=== PATIENT | female | born 1935 | race Caucasian/White ===

== ENCOUNTER → 2022-02-04 | Outpatient (CLI) | payer SELFPAY ==
[2022-02-04 16:38] LABS: Mucous, Urine 0 SEEN /hpf (<or=2+)
[2022-02-04 16:41] LABS: Color, Urine Yellow (Yellow); Glucose, Dipstick Normal (Normal); Ketone-Dipstick Negative (Negative); Leukocyte Esterase-Dipstick 500 /ul (Negative); Nitrite-Dipstick Negative (Negative); Occult Blood-Urine 25 /ul (Negative); Protein-Dipstick 15 mg/dl (Negative); Urine Bilirubin Dipstick Negative (Negative); Urine Clarity Sl. Cloudy (Clear); Urine Urobilinogen Normal (Normal)
[2022-02-04 17:12] LABS: White Blood Cells 5-10 SEEN /hpf (0-5)
[2022-02-04 17:13] LABS: Bacteria 3+ /hpf (None Seen); Red Blood Cells-Urine 0-5 SEEN /hpf (0-5); Squamous Epithelial Cells - UA 0-5 SEEN /hpf (5-10)
== END | disposition home or self-care (01) ==
PROVIDERS: Visit Provider Physician Assistant
DX: R11.0 Nausea (principal); R61 Generalized hyperhidrosis; R41.0 Disorientation, unspecified
CPT/HCPCS: 81001; 87077; 87086; 87088; 87186